=== PATIENT | male | born 1940 | race Caucasian/White ===

== ENCOUNTER 2018-02-08 17:00 | Inpatient (IN) ==
[2018-02-08 19:18] LABS: Basophils % 0.5 % (0.0-0.8); Eosinophils # 0.1 10*3/uL (0.0-0.87); Hematocrit 36.2 VOL% (42.0-52.0); Hemoglobin 10.8 GM/DL (14.0-18.0); Immature Granulocytes % 0.4 %; Immature Granulocytes Absolute 0.03 #; Lymphocytes # 0.8 10*3/uL (1.4-4.0); Lymphocytes % 9.7 % (21.2-54.2); Mean Corpuscular HGB Conc 29.8 GM/DL (32-36); Mean Corpuscular Hemoglobin 26 PG (27-34); Mean Corpuscular Volume 88.5 FL (87-102); Mean Platelet Volume 10.4 FL (9.6-12.0); Monocytes # 0.7 10*3/uL (0.11-0.8); Monocytes % 7.9 % (1.7-12.7); Neutrophils # 6.8 10*3/uL (1.4-7.4); Neutrophils % 80.5 % (38.7-73.9); Platelet Count 267 T/CUMM (130-400); Red Blood Count 4.09 MC/CUMM (3.8-5.5); Red Cell Distribution Width 16.9 % (9.3-17.3); White Blood Count 8.4 T/CUMM (4-12)
[2018-02-08 19:37] LABS: Alanine Aminotransferase 20 U/L (16-61); Alkaline Phosphatase 56 U/L (45-117); Aspartate Amino Transferase 12 U/L (0-37); Bilirubin,Total < 0.39 MG/DL (0.2-1.0); Blood Urea Nitrogen 31 MG/DL (7-18); Calcium 8.2 MG/DL (8.5-10.1); Glucose 106 MG/DL (74-106); Potassium 3.9 MMOL/L (3.5-5.1); Sodium 143 MMOL/L (136-145); Total Protein 6.8 G/DL (6.4-8.3); Troponin I Only < 0.015 NG/ML (0.00-0.045)
[2018-02-08] MEDS ORDERED: FUROSEMIDE 100 MG/10 ML VIAL IV STA (22:50)
[2018-02-09] MEDS: ALBUTEROL/IPRATROPIUM 3 ML NEB RESP TX STA ×2 (00:36→00:45)
[2018-02-09] MEDS ORDERED: FUROSEMIDE 40 MG/4 ML VIAL ONE (00:44)
[2018-02-09] MEDS ORDERED: ACETAMINOPHEN 325 MG TABLET PO PRN (01:14)
[2018-02-09] MEDS ORDERED: MAGNESIUM SULF RIDER 2 GM in PREMIX 1 EACH IV PRN (01:14)
[2018-02-09] MEDS ORDERED: MAGNESIUM SULF RIDER 4 GM in PREMIX 1 EACH IV PRN (01:14)
[2018-02-09] MEDS ORDERED: DEXTROSE 50% 25 GM/50 ML VIAL IV PRN (01:14)
[2018-02-09] MEDS ORDERED: GLUCAGON 1 MG VIAL IM PRN (01:14)
[2018-02-09 01:50] LABS: Apearance,Urine CLEAR (Clear); Bilirubin,Urine Negative (Negative); Blood, Urine Negative (Negative); Glucose,Urine (UA) Negative (Negative); Ketones,Urine Negative (Negative); Nitrite,Urine Negative (Negative); Protein,Urine Negative; RBC,Urine <1 /HPF (0-4); Squamous Epithelial Cell,Urine Occasional /HPF (0-10); Urine Color Yellow (Yellow); Urine Specific Gravity 1.012 (1.001-1.035); Urine Urobilinogen < 2.0 EU/DL (0.2-1.0); WBC,Urine 1 /HPF (0-6)
[2018-02-09] MEDS: ALBUTEROL 2.5 MG/3 ML NEB RESP TX SCH ×2 (01:57→08:37)
[2018-02-09 05:31] LABS: Alanine Aminotransferase 20 U/L (16-61); Albumin 3.2 G/DL (3.4-5.0); Alkaline Phosphatase 58 U/L (45-117); Aspartate Amino Transferase 15 U/L (0-37); Blood Urea Nitrogen 29 MG/DL (7-18); Calcium 8.4 MG/DL (8.5-10.1); Glucose 91 MG/DL (74-106); Osmolality,Calculated 291.8 MOS/KG (273-304); Potassium 3.3 MMOL/L (3.5-5.1); Sodium 144 MMOL/L (136-145); Total Protein 6.4 G/DL (6.4-8.3); Troponin I Only < 0.015 NG/ML (0.00-0.045)
[2018-02-09 05:32] LABS: Basophils # 0.1 10*3/uL (0.0-0.2); Basophils % 0.6 % (0.0-0.8); Eosinophils # 0.1 10*3/uL (0.0-0.87); Eosinophils % 1.5 % (0.00-10.9); Hematocrit 35.4 VOL% (42.0-52.0); Hemoglobin 10.5 GM/DL (14.0-18.0); Immature Granulocytes % 0.5 %; Immature Granulocytes Absolute 0.04 #; Lymphocytes # 0.9 10*3/uL (1.4-4.0); Lymphocytes % 10.7 % (21.2-54.2); Mean Corpuscular HGB Conc 29.7 GM/DL (32-36); Mean Corpuscular Hemoglobin 26 PG (27-34); Mean Corpuscular Volume 88.7 FL (87-102); Mean Platelet Volume 10.9 FL (9.6-12.0); Monocytes # 0.8 10*3/uL (0.11-0.8); Monocytes % 9.3 % (1.7-12.7); Neutrophils # 6.8 10*3/uL (1.4-7.4); Neutrophils % 77.4 % (38.7-73.9); Platelet Count 273 T/CUMM (130-400); Red Blood Count 3.99 MC/CUMM (3.8-5.5); Red Cell Distribution Width 16.7 % (9.3-17.3); White Blood Count 8.8 T/CUMM (4-12)
[2018-02-09 05:41] LABS: Anisocytosis 1+; Hypochromasia 1+; Microcytosis 1+
[2018-02-09 05:42] LABS: Ovalocytes Few; Polychromasia Slight
[2018-02-09 05:43] LABS: Platelet Estimate Normal; Stomatocytes Slight
[2018-02-09] MEDS ORDERED: ALBUTEROL 2.5 MG/3 ML NEB RESP TX SCH (07:00)
[2018-02-09 07:52] LABS: Basophils # 0.1 10*3/uL (0.0-0.2); Basophils % 0.6 % (0.0-0.8); Eosinophils # 0.2 10*3/uL (0.0-0.87); Eosinophils % 1.8 % (0.00-10.9); Hematocrit 35.2 VOL% (42.0-52.0); Hemoglobin 10.4 GM/DL (14.0-18.0); Immature Granulocytes % 0.4 %; Immature Granulocytes Absolute 0.03 #; Lymphocytes % 11.4 % (21.2-54.2); Mean Corpuscular HGB Conc 29.5 GM/DL (32-36); Mean Corpuscular Hemoglobin 26 PG (27-34); Mean Platelet Volume 10.7 FL (9.6-12.0); Monocytes # 0.8 10*3/uL (0.11-0.8); Monocytes % 9.5 % (1.7-12.7); Neutrophils # 6.4 10*3/uL (1.4-7.4); Neutrophils % 76.3 % (38.7-73.9); Platelet Count 267 T/CUMM (130-400); Red Cell Distribution Width 16.7 % (9.3-17.3); White Blood Count 8.3 T/CUMM (4-12)
[2018-02-09] MEDS ORDERED: BUMETANIDE 1 MG TABLET PO SCH (08:00)
[2018-02-09 08:27] LABS: Albumin 3.1 G/DL (3.4-5.0); Bilirubin,Total 0.6 MG/DL (0.2-1.0); Calcium 8.5 MG/DL (8.5-10.1); Osmolality,Calculated 296.4 MOS/KG (273-304); Potassium 3.6 MMOL/L (3.5-5.1); Total Protein 6.2 G/DL (6.4-8.3)
[2018-02-09] MEDS ORDERED: METOPROLOL TARTRATE 50 MG TABLET PO SCH (09:00)
[2018-02-09] MEDS: FUROSEMIDE 40 MG/4 ML VIAL IV SCH ×2 (09:17→16:58)
[2018-02-09] MEDS: MAGNESIUM OXIDE 400 MG TABLET PO SCH ×2 (09:19→20:48)
[2018-02-09] MEDS: VERAPAMIL SR 240 MG TABLET PO SCH (09:19)
[2018-02-09] MEDS: ASPIRIN EC 81 MG TABLET PO SCH (09:19)
[2018-02-09] MEDS: POLYETHYLENE GLYCOL POWDER 17 GM PACK PO SCH (09:19)
[2018-02-09] MEDS: PANTOPRAZOLE 40 MG TABLET PO SCH (09:19)
[2018-02-09] MEDS: POTASSIUM CHLORIDE 20 MEQ TABLET PO SCH ×2 (09:19→20:48)
[2018-02-09] MEDS: DOXAZOSIN 4 MG TABLET PO SCH (09:19)
[2018-02-09] MEDS: APIXABAN 5 MG TABLET PO SCH ×2 (09:20→20:47)
[2018-02-09] MEDS: predniSONE 5 MG TABLET PO SCH (09:20)
[2018-02-09] MEDS: FLUTICASONE/SALMETEROL 500-50 DISKUS 14 DOSE INH SCH ×2 (09:21→20:49)
[2018-02-09] MEDS: oxyCODONE/ACETAMINOPHEN 5-325 MG TABLET PO SCH ×2 (09:29→20:47)
[2018-02-09] MEDS: POTASSIUM IODIDE ORAL SOLN 1,000 MG/ML BOTTLE PO SCH ×3 (14:00→21:14)
[2018-02-09] MEDS ORDERED: hydrALAZINE 25 MG TABLET PO SCH (15:00)
[2018-02-09] MEDS: ALBUTEROL/IPRATROPIUM 3 ML NEB RESP TX SCH ×2 (15:14→19:41)
[2018-02-09] MEDS: metOLazone 5 MG TABLET PO SCH (16:58)
[2018-02-09] MEDS: PRAVASTATIN 40 MG TABLET PO SCH (20:47)
[2018-02-10] MEDS: ALBUTEROL/IPRATROPIUM 3 ML NEB RESP TX SCH ×7 (00:36→22:51)
[2018-02-10] MEDS: POTASSIUM IODIDE ORAL SOLN 1,000 MG/ML BOTTLE PO SCH ×3 (09:17→22:07)
[2018-02-10] MEDS: VERAPAMIL SR 240 MG TABLET PO SCH (09:18)
[2018-02-10] MEDS: predniSONE 5 MG TABLET PO SCH (09:18)
[2018-02-10] MEDS: FUROSEMIDE 40 MG/4 ML VIAL IV SCH ×3 (09:18→17:40)
[2018-02-10] MEDS: DOXAZOSIN 4 MG TABLET PO SCH (09:18)
[2018-02-10] MEDS: POTASSIUM CHLORIDE 20 MEQ TABLET PO SCH ×4 (09:19→21:17)
[2018-02-10] MEDS: APIXABAN 5 MG TABLET PO SCH ×2 (09:19→21:17)
[2018-02-10] MEDS: MAGNESIUM OXIDE 400 MG TABLET PO SCH ×2 (09:19→21:40)
[2018-02-10] MEDS: PANTOPRAZOLE 40 MG TABLET PO SCH (09:19)
[2018-02-10] MEDS: oxyCODONE/ACETAMINOPHEN 5-325 MG TABLET PO SCH ×2 (09:19→21:17)
[2018-02-10] MEDS: POLYETHYLENE GLYCOL POWDER 17 GM PACK PO SCH (09:20)
[2018-02-10] MEDS: metOLazone 5 MG TABLET PO SCH (09:20)
[2018-02-10] MEDS: FLUTICASONE/SALMETEROL 500-50 DISKUS 14 DOSE INH SCH ×2 (09:20→21:16)
[2018-02-10] MEDS: ASPIRIN EC 81 MG TABLET PO SCH (09:20)
[2018-02-10] MEDS ORDERED: METOPROLOL TARTRATE 50 MG TABLET PO SCH ×2 (09:56→21:00)
[2018-02-10 10:01] LABS: Basophils % 0.5 % (0.0-0.8); Eosinophils # 0.2 10*3/uL (0.0-0.87); Eosinophils % 1.8 % (0.00-10.9); Hematocrit 35.1 VOL% (42.0-52.0); Hemoglobin 10.1 GM/DL (14.0-18.0); Immature Granulocytes % 0.4 %; Immature Granulocytes Absolute 0.03 #; Lymphocytes % 11.9 % (21.2-54.2); Mean Corpuscular HGB Conc 28.8 GM/DL (32-36); Mean Corpuscular Hemoglobin 26 PG (27-34); Mean Corpuscular Volume 89.1 FL (87-102); Mean Platelet Volume 10.4 FL (9.6-12.0); Monocytes # 0.6 10*3/uL (0.11-0.8); Monocytes % 7.4 % (1.7-12.7); Neutrophils # 6.4 10*3/uL (1.4-7.4); Platelet Count 278 T/CUMM (130-400); Red Blood Count 3.94 MC/CUMM (3.8-5.5); Red Cell Distribution Width 16.7 % (9.3-17.3); White Blood Count 8.2 T/CUMM (4-12)
[2018-02-10 10:24] LABS: Calcium 8.4 MG/DL (8.5-10.1); Potassium 3.1 MMOL/L (3.5-5.1)
[2018-02-10 10:57] LABS: Ovalocytes Few; Polychromasia Few
[2018-02-10 10:58] LABS: Elliptocytes Few; Hypochromasia 1+
[2018-02-10 10:59] LABS: Platelet Estimate Adequate
[2018-02-10] MEDS: PRAVASTATIN 40 MG TABLET PO SCH (21:17)
[2018-02-10] MEDS: METOPROLOL TARTRATE 50 MG TABLET PO SCH (21:19)
[2018-02-11] MEDS: ALBUTEROL/IPRATROPIUM 3 ML NEB RESP TX SCH ×6 (02:37→23:34)
[2018-02-11 06:28] LABS: Basophils % 0.5 % (0.0-0.8); Calcium 8.4 MG/DL (8.5-10.1); Eosinophils # 0.2 10*3/uL (0.0-0.87); Eosinophils % 2.4 % (0.00-10.9); Hematocrit 34.5 VOL% (42.0-52.0); Hemoglobin 9.9 GM/DL (14.0-18.0); Immature Granulocytes % 0.7 %; Immature Granulocytes Absolute 0.05 #; Lymphocytes % 13.3 % (21.2-54.2); Mean Corpuscular HGB Conc 28.7 GM/DL (32-36); Mean Corpuscular Hemoglobin 26 PG (27-34); Mean Corpuscular Volume 89.1 FL (87-102); Mean Platelet Volume 10.8 FL (9.6-12.0); Monocytes # 0.7 10*3/uL (0.11-0.8); Monocytes % 8.8 % (1.7-12.7); Neutrophils # 5.6 10*3/uL (1.4-7.4); Neutrophils % 74.3 % (38.7-73.9); Osmolality,Calculated 293.8 MOS/KG (273-304); Platelet Count 264 T/CUMM (130-400); Potassium 3.5 MMOL/L (3.5-5.1); Red Blood Count 3.87 MC/CUMM (3.8-5.5); Red Cell Distribution Width 16.6 % (9.3-17.3); White Blood Count 7.5 T/CUMM (4-12)
[2018-02-11 06:58] LABS: Hypochromasia 2+; Macrocytosis 1+
[2018-02-11] MEDS: FLUTICASONE/SALMETEROL 500-50 DISKUS 14 DOSE INH SCH ×2 (09:35→21:27)
[2018-02-11] MEDS: FUROSEMIDE 40 MG/4 ML VIAL IV SCH ×2 (09:35→18:10)
[2018-02-11] MEDS: ASPIRIN EC 81 MG TABLET PO SCH (09:35)
[2018-02-11] MEDS: VERAPAMIL SR 240 MG TABLET PO SCH (09:35)
[2018-02-11] MEDS: hydrALAZINE 25 MG TABLET PO SCH ×2 (09:35→21:21)
[2018-02-11] MEDS: METOPROLOL TARTRATE 50 MG TABLET PO SCH ×2 (09:35→21:21)
[2018-02-11] MEDS: DOXAZOSIN 4 MG TABLET PO SCH (09:36)
[2018-02-11] MEDS: PANTOPRAZOLE 40 MG TABLET PO SCH (09:36)
[2018-02-11] MEDS: APIXABAN 5 MG TABLET PO SCH ×2 (09:36→21:21)
[2018-02-11] MEDS: metOLazone 5 MG TABLET PO SCH (09:36)
[2018-02-11] MEDS: POTASSIUM CHLORIDE 20 MEQ TABLET PO SCH ×2 (09:36→21:21)
[2018-02-11] MEDS: predniSONE 5 MG TABLET PO SCH (09:36)
[2018-02-11] MEDS: POLYETHYLENE GLYCOL POWDER 17 GM PACK PO SCH (09:36)
[2018-02-11] MEDS: oxyCODONE/ACETAMINOPHEN 5-325 MG TABLET PO SCH ×2 (09:37→21:21)
[2018-02-11] MEDS: POTASSIUM IODIDE ORAL SOLN 1,000 MG/ML BOTTLE PO SCH ×3 (09:37→21:28)
[2018-02-11] MEDS: MAGNESIUM OXIDE 400 MG TABLET PO SCH ×2 (09:37→21:21)
[2018-02-11] MEDS: PRAVASTATIN 40 MG TABLET PO SCH (21:21)
[2018-02-12] MEDS: ALBUTEROL/IPRATROPIUM 3 ML NEB RESP TX SCH ×5 (03:28→19:36)
[2018-02-12 06:11] LABS: Basophils % 0.5 % (0.0-0.8); Eosinophils # 0.2 10*3/uL (0.0-0.87); Eosinophils % 2.6 % (0.00-10.9); Hematocrit 34.4 VOL% (42.0-52.0); Hemoglobin 10.2 GM/DL (14.0-18.0); Immature Granulocytes % 0.4 %; Immature Granulocytes Absolute 0.03 #; Lymphocytes % 12.9 % (21.2-54.2); Mean Corpuscular HGB Conc 29.7 GM/DL (32-36); Mean Corpuscular Hemoglobin 26 PG (27-34); Mean Corpuscular Volume 88.9 FL (87-102); Mean Platelet Volume 10.8 FL (9.6-12.0); Monocytes # 0.8 10*3/uL (0.11-0.8); Monocytes % 10.2 % (1.7-12.7); Neutrophils # 5.6 10*3/uL (1.4-7.4); Neutrophils % 73.4 % (38.7-73.9); Platelet Count 247 T/CUMM (130-400); Red Blood Count 3.87 MC/CUMM (3.8-5.5); Red Cell Distribution Width 16.5 % (9.3-17.3); White Blood Count 7.7 T/CUMM (4-12)
[2018-02-12 06:17] LABS: Calcium 8.3 MG/DL (8.5-10.1); Osmolality,Calculated 295.8 MOS/KG (273-304); Potassium 2.9 MMOL/L (3.5-5.1)
[2018-02-12] MEDS: oxyCODONE/ACETAMINOPHEN 5-325 MG TABLET PO SCH ×2 (08:58→20:39)
[2018-02-12] MEDS: DOXAZOSIN 4 MG TABLET PO SCH (08:58)
[2018-02-12] MEDS: predniSONE 20 MG TABLET PO SCH (08:58)
[2018-02-12] MEDS: hydrALAZINE 25 MG TABLET PO SCH ×2 (08:58→20:39)
[2018-02-12] MEDS: POTASSIUM CHLORIDE 20 MEQ TABLET PO SCH ×2 (08:58→20:39)
[2018-02-12] MEDS: APIXABAN 5 MG TABLET PO SCH ×2 (08:58→20:39)
[2018-02-12] MEDS: MAGNESIUM OXIDE 400 MG TABLET PO SCH ×2 (08:58→20:39)
[2018-02-12] MEDS: PANTOPRAZOLE 40 MG TABLET PO SCH (08:58)
[2018-02-12] MEDS: FLUTICASONE/SALMETEROL 500-50 DISKUS 14 DOSE INH SCH ×2 (08:59→20:37)
[2018-02-12] MEDS: ASPIRIN EC 81 MG TABLET PO SCH (08:59)
[2018-02-12] MEDS: FUROSEMIDE 40 MG/4 ML VIAL IV SCH ×2 (08:59→17:19)
[2018-02-12] MEDS: POTASSIUM IODIDE ORAL SOLN 1,000 MG/ML BOTTLE PO SCH ×3 (08:59→20:47)
[2018-02-12] MEDS: VERAPAMIL SR 240 MG TABLET PO SCH (08:59)
[2018-02-12] MEDS: POLYETHYLENE GLYCOL POWDER 17 GM PACK PO SCH (08:59)
[2018-02-12] MEDS: metOLazone 5 MG TABLET PO SCH (09:00)
[2018-02-12] MEDS: METOPROLOL TARTRATE 50 MG TABLET PO SCH ×2 (09:00→20:39)
[2018-02-12] MEDS: PRAVASTATIN 40 MG TABLET PO SCH (20:40)
[2018-02-13] MEDS: ALBUTEROL/IPRATROPIUM 3 ML NEB RESP TX SCH ×7 (00:26→23:25)
[2018-02-13 05:10] LABS: Calcium 8.7 MG/DL (8.5-10.1); Osmolality,Calculated 290.3 MOS/KG (273-304); Potassium 3.3 MMOL/L (3.5-5.1)
[2018-02-13 05:16] LABS: Basophils % 0.4 % (0.0-0.8); Eosinophils # 0.1 10*3/uL (0.0-0.87); Eosinophils % 1.3 % (0.00-10.9); Hematocrit 35.5 VOL% (42.0-52.0); Hemoglobin 10.5 GM/DL (14.0-18.0); Immature Granulocytes % 0.3 %; Immature Granulocytes Absolute 0.03 #; Lymphocytes # 0.9 10*3/uL (1.4-4.0); Lymphocytes % 9.6 % (21.2-54.2); Mean Corpuscular HGB Conc 29.6 GM/DL (32-36); Mean Corpuscular Hemoglobin 26 PG (27-34); Mean Corpuscular Volume 87.9 FL (87-102); Mean Platelet Volume 11.6 FL (9.6-12.0); Monocytes # 0.9 10*3/uL (0.11-0.8); Monocytes % 9.7 % (1.7-12.7); Neutrophils % 78.7 % (38.7-73.9); Platelet Count 268 T/CUMM (130-400); Red Blood Count 4.04 MC/CUMM (3.8-5.5); Red Cell Distribution Width 16.2 % (9.3-17.3)
[2018-02-13] MEDS: ASPIRIN EC 81 MG TABLET PO SCH (08:16)
[2018-02-13] MEDS: APIXABAN 5 MG TABLET PO SCH ×2 (08:16→21:03)
[2018-02-13] MEDS: DOXAZOSIN 4 MG TABLET PO SCH (08:16)
[2018-02-13] MEDS: METOPROLOL TARTRATE 50 MG TABLET PO SCH ×2 (08:16→21:03)
[2018-02-13] MEDS: VERAPAMIL SR 240 MG TABLET PO SCH (08:16)
[2018-02-13] MEDS: MAGNESIUM OXIDE 400 MG TABLET PO SCH ×2 (08:16→21:04)
[2018-02-13] MEDS: PANTOPRAZOLE 40 MG TABLET PO SCH (08:16)
[2018-02-13] MEDS: FLUTICASONE/SALMETEROL 500-50 DISKUS 14 DOSE INH SCH ×2 (08:17→21:01)
[2018-02-13] MEDS: hydrALAZINE 25 MG TABLET PO SCH ×2 (08:17→21:03)
[2018-02-13] MEDS: metOLazone 5 MG TABLET PO SCH (08:17)
[2018-02-13] MEDS: oxyCODONE/ACETAMINOPHEN 5-325 MG TABLET PO SCH ×2 (08:17→21:04)
[2018-02-13] MEDS: predniSONE 20 MG TABLET PO SCH (08:17)
[2018-02-13] MEDS: POTASSIUM CHLORIDE 20 MEQ TABLET PO SCH ×2 (08:17→21:04)
[2018-02-13] MEDS: POLYETHYLENE GLYCOL POWDER 17 GM PACK PO SCH (08:17)
[2018-02-13] MEDS: FUROSEMIDE 40 MG/4 ML VIAL IV SCH ×2 (08:17→15:36)
[2018-02-13] MEDS ORDERED: POTASSIUM CHLORIDE 20 MEQ TABLET PO ONE (10:00)
[2018-02-13] MEDS: PRAVASTATIN 40 MG TABLET PO SCH (21:03)
[2018-02-14] MEDS: ALBUTEROL/IPRATROPIUM 3 ML NEB RESP TX SCH ×5 (02:54→19:04)
[2018-02-14 06:22] LABS: Calcium 8.7 MG/DL (8.5-10.1); Osmolality,Calculated 293.3 MOS/KG (273-304); Potassium 2.7 MMOL/L (3.5-5.1)
[2018-02-14] MEDS: predniSONE 20 MG TABLET PO SCH (08:53)
[2018-02-14] MEDS: hydrALAZINE 25 MG TABLET PO SCH ×2 (08:53→20:59)
[2018-02-14] MEDS: metOLazone 5 MG TABLET PO SCH (08:53)
[2018-02-14] MEDS: DOXAZOSIN 4 MG TABLET PO SCH (08:53)
[2018-02-14] MEDS: METOPROLOL TARTRATE 50 MG TABLET PO SCH ×2 (08:53→20:58)
[2018-02-14] MEDS: ASPIRIN EC 81 MG TABLET PO SCH (08:53)
[2018-02-14] MEDS: oxyCODONE/ACETAMINOPHEN 5-325 MG TABLET PO SCH ×2 (08:53→20:59)
[2018-02-14] MEDS: APIXABAN 5 MG TABLET PO SCH ×2 (08:53→20:58)
[2018-02-14] MEDS: VERAPAMIL SR 240 MG TABLET PO SCH (08:53)
[2018-02-14] MEDS: PANTOPRAZOLE 40 MG TABLET PO SCH (08:53)
[2018-02-14] MEDS: FUROSEMIDE 40 MG/4 ML VIAL IV SCH (08:54)
[2018-02-14] MEDS: MAGNESIUM OXIDE 400 MG TABLET PO SCH ×2 (08:54→20:58)
[2018-02-14] MEDS: POLYETHYLENE GLYCOL POWDER 17 GM PACK PO SCH (08:54)
[2018-02-14] MEDS: FLUTICASONE/SALMETEROL 500-50 DISKUS 14 DOSE INH SCH ×2 (08:54→20:57)
[2018-02-14] MEDS: POTASSIUM CHLORIDE 20 MEQ TABLET PO SCH ×2 (08:58→20:58)
[2018-02-14] MEDS: FUROSEMIDE 80 MG TABLET PO SCH (15:46)
[2018-02-14] MEDS: PRAVASTATIN 40 MG TABLET PO SCH (20:59)
[2018-02-15] MEDS: ALBUTEROL/IPRATROPIUM 3 ML NEB RESP TX SCH ×6 (00:06→19:38)
[2018-02-15 05:56] LABS: Calcium 8.8 MG/DL (8.5-10.1); Osmolality,Calculated 297.1 MOS/KG (273-304); Potassium 2.6 MMOL/L (3.5-5.1)
[2018-02-15] MEDS: FUROSEMIDE 80 MG TABLET PO SCH ×2 (09:07→17:19)
[2018-02-15] MEDS: FLUTICASONE/SALMETEROL 500-50 DISKUS 14 DOSE INH SCH ×2 (09:07→20:54)
[2018-02-15] MEDS: POTASSIUM CHLORIDE 20 MEQ TABLET PO SCH ×2 (09:07→20:55)
[2018-02-15] MEDS: MAGNESIUM OXIDE 400 MG TABLET PO SCH ×2 (09:07→20:55)
[2018-02-15] MEDS: hydrALAZINE 25 MG TABLET PO SCH ×2 (09:07→20:55)
[2018-02-15] MEDS: APIXABAN 5 MG TABLET PO SCH ×2 (09:07→20:56)
[2018-02-15] MEDS: METOPROLOL TARTRATE 50 MG TABLET PO SCH ×2 (09:07→20:54)
[2018-02-15] MEDS: VERAPAMIL SR 240 MG TABLET PO SCH (09:07)
[2018-02-15] MEDS: DOXAZOSIN 4 MG TABLET PO SCH (09:07)
[2018-02-15] MEDS: ASPIRIN EC 81 MG TABLET PO SCH (09:07)
[2018-02-15] MEDS: POLYETHYLENE GLYCOL POWDER 17 GM PACK PO SCH (09:08)
[2018-02-15] MEDS: metOLazone 5 MG TABLET PO SCH (09:08)
[2018-02-15] MEDS: PANTOPRAZOLE 40 MG TABLET PO SCH (09:08)
[2018-02-15] MEDS: predniSONE 20 MG TABLET PO SCH (09:08)
[2018-02-15] MEDS: POTASSIUM CHLORIDE RIDER 10 MEQ in PREMIX 1 EACH IV PRN ×5 (13:37→20:56)
[2018-02-15] MEDS: oxyCODONE/ACETAMINOPHEN 5-325 MG TABLET PO SCH ×2 (18:55→20:54)
[2018-02-15] MEDS: PRAVASTATIN 40 MG TABLET PO SCH (20:55)
[2018-02-16] MEDS: ALBUTEROL/IPRATROPIUM 3 ML NEB RESP TX SCH ×5 (00:03→15:35)
[2018-02-16 01:36] LABS: Basophils % 0.4 % (0.0-0.8); Eosinophils # 0.1 10*3/uL (0.0-0.87); Eosinophils % 1.1 % (0.00-10.9); Hematocrit 34.9 VOL% (42.0-52.0); Immature Granulocytes % 0.4 %; Immature Granulocytes Absolute 0.04 #; Lymphocytes # 0.9 10*3/uL (1.4-4.0); Lymphocytes % 9.3 % (21.2-54.2); Mean Corpuscular HGB Conc 29.2 GM/DL (32-36); Mean Corpuscular Hemoglobin 25 PG (27-34); Mean Corpuscular Volume 86.8 FL (87-102); Mean Platelet Volume 10.8 FL (9.6-12.0); Monocytes # 0.9 10*3/uL (0.11-0.8); Neutrophils # 7.7 10*3/uL (1.4-7.4); Neutrophils % 79.8 % (38.7-73.9); Platelet Count 247 T/CUMM (130-400); Red Blood Count 4.02 MC/CUMM (3.8-5.5); Red Cell Distribution Width 16.2 % (9.3-17.3); White Blood Count 9.6 T/CUMM (4-12)
[2018-02-16 01:43] LABS: Hemoglobin 10.3 GM/DL (14.0-18.0)
[2018-02-16 02:00] LABS: Calcium 8.9 MG/DL (8.5-10.1); Osmolality,Calculated 294.4 MOS/KG (273-304); Potassium 2.9 MMOL/L (3.5-5.1)
[2018-02-16] MEDS: POTASSIUM CHLORIDE RIDER 10 MEQ in PREMIX 1 EACH IV PRN ×3 (03:09→07:22)
[2018-02-16] MEDS ORDERED: POTASSIUM CHLORIDE 20 MEQ TABLET PO ONE ×2 (08:52→12:00)
[2018-02-16] MEDS: FUROSEMIDE 80 MG TABLET PO SCH ×2 (09:36→17:39)
[2018-02-16] MEDS: ASPIRIN EC 81 MG TABLET PO SCH (09:37)
[2018-02-16] MEDS: APIXABAN 5 MG TABLET PO SCH (09:37)
[2018-02-16] MEDS: DOXAZOSIN 4 MG TABLET PO SCH (09:37)
[2018-02-16] MEDS: VERAPAMIL SR 240 MG TABLET PO SCH (09:37)
[2018-02-16] MEDS: hydrALAZINE 25 MG TABLET PO SCH (09:37)
[2018-02-16] MEDS: FLUTICASONE/SALMETEROL 500-50 DISKUS 14 DOSE INH SCH (09:37)
[2018-02-16] MEDS: METOPROLOL TARTRATE 50 MG TABLET PO SCH (09:38)
[2018-02-16] MEDS: oxyCODONE/ACETAMINOPHEN 5-325 MG TABLET PO SCH (09:38)
[2018-02-16] MEDS: MAGNESIUM OXIDE 400 MG TABLET PO SCH (09:38)
[2018-02-16] MEDS: POTASSIUM CHLORIDE 20 MEQ TABLET PO SCH (09:38)
[2018-02-16] MEDS: predniSONE 20 MG TABLET PO SCH (09:39)
[2018-02-16] MEDS: POLYETHYLENE GLYCOL POWDER 17 GM PACK PO SCH (09:39)
[2018-02-16] MEDS: PANTOPRAZOLE 40 MG TABLET PO SCH (09:39)
[2018-02-16] MEDS: metOLazone 5 MG TABLET PO SCH (09:39)
[2018-02-16 14:39] LABS: Calcium 8.3 MG/DL (8.5-10.1); Osmolality,Calculated 296.4 MOS/KG (273-304)
[2018-02-16 15:24] VITALS: BP 119/81
== END 2018-02-16 17:00 | disposition home health service (06) | DRG 291 ==
LOC: N.ED 17:00 → N.EDINP 02-09 01:14 → SUATTDRO 02-09 01:14 → N.3E 02-09 01:54
PROVIDERS: ADMIT Internal Medicine; ATTEND Internal Medicine